=== PATIENT | male | born 1960 | race Caucasian/White ===

== ENCOUNTER → 2017-04-05 | Outpatient (CLI) | payer BC ==
[~2017-04-05] VITALS: Ht 172.7 cm; Wt 81.6 kg
[~2017-04-05] MED LIST: COZAAR50 MG PO; FISH OIL 500 M1 EAC2 PO; GLUCOPHAGE1000 MG PO; JARDIANCE25 MG PO; LIPITOR40 MG PO; LO-DOSE ASPIRIN81 M2 PO; LOPRESSOR25 MG PO; PEPCID AC10 MG PO; TRICOR145 MG PO; VICTOZA 2-0.6 MG/0.1 SC
[2017-04-05 08:29] LABS: POINT-OF-CARE METER ID UU14107333
[2017-04-05 10:00] LABS: POINT-OF-CARE METER ID UU13113819
== END | disposition home or self-care (01) ==
LOC: AMB 07:33
PROVIDERS: Internal Medicine
DX: Z12.11 Encounter for screening for malignant neoplasm of colon (principal); D12.3 Benign neoplasm of transverse colon; D12.2 Benign neoplasm of ascending colon; I25.10 Atherosclerotic heart disease of native coronary artery without angina pectoris; E78.5 Hyperlipidemia, unspecified; I10 Essential (primary) hypertension; E11.9 Type 2 diabetes mellitus without complications; Z79.82 Long term (current) use of aspirin; Z79.84 Long term (current) use of oral hypoglycemic drugs; F17.220 Nicotine dependence, chewing tobacco, uncomplicated
CPT/HCPCS: 82948; 88305; J2250